=== PATIENT | female | born 1965 | race Caucasian/White ===

== ENCOUNTER 2018-10-15 08:55 | Emergency (ER) | payer SELFPAY ==
[~2018-10-15] VITALS: Ht 170.2 cm; Wt 61.7 kg
--- NOTE | 2018-10-15 09:07 | NUR ---
PT IS IN ROOM #2A. DR STARKEY EVALUATED THE PT.
--- NOTE | 2018-10-15 09:54 | NUR ---
CLOSED REDUCTION OF RIGHT WRIST WAS DONE BY DR STARKEY. PT TOLERATED TO PROCEDURE WITHOUT COMPLICATIONS. NO S/S OF DISTRESS AT THE TIME OF DISCHARGE. PT WAS D/C'd TO HOME. D/C INSTRUCTIONS GIVEN TO THE PT.
[2018-10-15 09:58] VITALS: BP 136/71
== END 2018-10-15 10:15 | disposition home or self-care (01) ==
LOC: ER 08:55
DX: S52.531A Colles' fracture of right radius, initial encounter for closed fracture (principal); W18.39XA Other fall on same level, initial encounter; Y93.89 Activity, other specified; Y92.89 Other specified places as the place of occurrence of the external cause; Y99.8 Other external cause status
CPT/HCPCS: 73100; 73110; A4663